=== PATIENT | female | born 1995 | race Caucasian/White ===

== ENCOUNTER 2017-03-17 08:38 | Emergency (ER) | payer BC, MEDICAID, OTHER ==
[~2017-03-17] VITALS: Ht 162.6 cm; Wt 127.3 kg
[~2017-03-17 08:38] MED LIST: ACET500C PO; IBUP80TA PO; PRENTAB55 PO
[2017-03-17] MEDS ORDERED: MEDR1VL IM (08:48)
[2017-03-17] MEDS ORDERED: DOXY100C37 PO (09:27)
[2017-03-17] MEDS ORDERED: IBUP80TA PO (09:28)
[2017-03-17] MEDS ORDERED: IBUPROFEN 800 MG TAB PO ONE (09:30)
[2017-03-17 09:47] VITALS: BP 140/78
== END 2017-03-17 09:57 | disposition home or self-care (01) ==
LOC: M ED 08:38
DX: L73.2 Hidradenitis suppurativa (principal); L02.411 Cutaneous abscess of right axilla; F17.200 Nicotine dependence, unspecified, uncomplicated; Z86.14 Personal history of Methicillin resistant Staphylococcus aureus infection; Z79.3 Long term (current) use of hormonal contraceptives

== ENCOUNTER 2017-03-28 10:24 | Emergency (ER) | payer OTHER ==
[~2017-03-28] VITALS: Ht 162.6 cm; Wt 134.1 kg
[~2017-03-28 10:24] MED LIST changes: +DOXY100C37 PO; +MEDR1VL IM
[2017-03-28] MEDS ORDERED: TOPA50TA8 PO (10:34)
[2017-03-28] MEDS ORDERED: BACT800T5 PO (10:34)
[2017-03-28] MEDS ORDERED: diphenhydrAMINE INJ 50MG/ML VIAL (J1200) IV STA (11:11)
[2017-03-28] MEDS ORDERED: KETOROLAC 30 MG/ML VIAL (J1885) IV ONE (11:15)
[2017-03-28] MEDS ORDERED: NS 1,000 ML IV ONE (11:15)
[2017-03-28] MEDS ORDERED: METOCLOPRAMIDE INJ 10MG/2ML VIAL (J2765) IV ONE (11:15)
[2017-03-28] MEDS ORDERED: METOCLOPRAMIDE INJ 10MG/2ML VIAL (J2765) IM ONE (12:30)
[2017-03-28] MEDS ORDERED: diphenhydrAMINE INJ 50MG/ML VIAL (J1200) IM ONE (12:30)
[2017-03-28] MEDS ORDERED: KETOROLAC 60 MG/2 ML VIAL (J1885) IM ONE (12:30)
[2017-03-28 14:20] VITALS: BP 121/57
[2017-03-28] MEDS ORDERED: SUMA25TA3 PO (14:24)
== END 2017-03-28 14:42 | disposition home or self-care (01) ==
LOC: M ED 10:24
DX: R51 Headache (principal); Z72.0 Tobacco use
CPT/HCPCS: 96372; 99283; J1200; J1885; J2765

== ENCOUNTER 2017-07-09 10:53 | Emergency (ER) | payer OTHER ==
[~2017-07-09] VITALS: Ht 162.6 cm; Wt 128.6 kg
[~2017-07-09 10:53] MED LIST changes: +BACT800T5 PO; +SUMA25TA3 PO; +TOPA50TA8 PO
[2017-07-09 11:05] VITALS: BP 139/80
[2017-07-09] MEDS ORDERED: DOXY100C37 PO (12:09)
== END 2017-07-09 12:34 | disposition home or self-care (01) ==
LOC: M ED 10:53
DX: L02.414 Cutaneous abscess of left upper limb (principal); L02.214 Cutaneous abscess of groin; L73.2 Hidradenitis suppurativa; Z86.14 Personal history of Methicillin resistant Staphylococcus aureus infection; Z79.3 Long term (current) use of hormonal contraceptives; F17.210 Nicotine dependence, cigarettes, uncomplicated